=== PATIENT | female | born 1985 | race Two or more races ===

== ENCOUNTER 2018-02-17 18:27 | Emergency (ER) | payer MEDICAID ==
--- NOTE | 2018-02-17 18:48 | EDPHY ---
H & P Stated Complaint: HYPERVENTILATION/PANIC ATTACK Time Seen by Provider: 02/17/18 18:48 - Personal History LMP (Females 10-55): 22-28 Days Ago Current Tetanus/Diphtheria Vaccine: Yes - Medical/Surgical History Hx Asthma: No Hx Chronic Respiratory Disease: No Hx Diabetes: No Hx Cardiac Disease: No Hx Renal Disease: No Hx Cirrhosis: No Hx Alcoholism: No Hx HIV/AIDS: No Hx Splenectomy or Spleen Trauma: No Other PMH: tubal ligation/ANXIETY - Social History Smoking Status: Never smoked Constitutional: Initial Vital Signs Temperature (C) 37 C 02/17/18 18:43 Heart Rate 124 H 02/17/18 18:43 Respiratory Rate 32 H 02/17/18 18:43 Blood Pressure 170/125 H 02/17/18 18:43 O2 Sat (%) 99 02/17/18 18:43 O2 Delivery Mode Room Air Allergies/Adverse Reactions: No Known Allergies Allergy (Verified 02/17/18 18:41) Home Medications: Medication Instructions Recorded NK [No Known Home Meds] 02/17/18 Medical Decision Making ED Course/Re-evaluation: CHIEF COMPLAINT: Panic attack HISTORY OF PRESENT ILLNESS: This patient is a Lao-speaking 32 year old female presenting with an anxiety attack. This was reportedly triggerd this afternoon by some behavior by her teenaged son. She has had similar episodes in the past and has presented to this emergency department for evaluation. She is unable to provide further details at this time. HPI obtained primarily through deli associate at bedside. REVIEW OF SYSTEMS: A 10 point review of systems was performed and is negative with the exception of the elements mentioned in the history of present illness. PHYSICAL EXAM: HR, BP, O2 Sat, RR. Temp noted General Appearance: Appears anxious. Alert, well hydrated, and non-toxic appearing. Head: Atraumatic without scalp tenderness or obvious injury Eyes: Pupils equal, round, reactive to light and accommodation, EOMI, no trauma , no injection. Ears: Clear bilaterally, no perforation, normal landmarks Nose: Atraumatic, no rhinorrhea, clear. Throat: There is no erythema or exudates, no lesions, normal tonsils, mucus membranes moist. Neck: Supple, 2+ carotid upstroke, nontender, no lymphadenopathy. Respiratory: No retractions, no distress, no wheezes, and no accessory muscle use. Lungs are clear to auscultation bilaterally. Cardiovascular: Regular rate and rhythm, no murmurs, rubs, or gallops. Bilateral carotid, radial, dorsalis pedis, and posterior tibial pulses intact. Good capillary refill all extremities. Gastrointestinal: Abdomen is soft, nontender, non-distended, no masses, no rebound, no guarding, no peritoneal signs. Musculoskeletal: Normal active ROM of all extremities, atraumatic. Neurological: Alert, appropriate, and interactive. The patient has normal DTRs and non-focal cranial nerves, motor, sensory, and cerebellar exam. Skin: No rashes, good turgor, no nodules on palpation. Past medical history: Anxiety. Past surgical history: Noncontributory. Family history: Noncontributory. Social history: Lao -speaking. Friend at bedside. . Employed. DIFFERENTIAL DIAGNOSIS: Includes but not limited to anxiety. MEDICAL DECISION [id number] y/o female presents with anxiety. Plan to administer 2mg sublingual Ativan for symptom relief. Reassessed patient. She is feeling better following Ativan administration. Plan to discharge home in good condition. [facility] provided. She is comfortable with this plan. - Data Points Medications Given: Discontinued Medications Lorazepam (Ativan Injection) 2 mg IVP EDNOW ONE Stop: 02/17/18 18:53 Last Admin: 02/17/18 18:55 Dose: 2 mg Lorazepam (Ativan 1 Mg Prepack#4) 1 btl TAKEHOME EDNOW ONE Stop: 02/17/18 19:04 Last Admin: 02/17/18 19:25 Dose: 1 btl Departure - Departure Disposition: Home, Routine, Self-Care Clinical Impression: Anxiety Condition: Good Instructions: Anxiety (ED), Panic Attack (ED) Additional Instructions: 1. Take Ativan as prescribed as needed for anxiety. 2. [facility] with [facility]; they may be able to help with techniques to reduce anxiety. 3. Return to the emergency department for chest pain, shortness of breath, fever , or other worsening of condition. Referrals: [facility],. [Clinic] - As per Instructions Report Scribed for: Hao Wise Report Scribed by: Germania Nair Date of Report: 02/17/18 Time of Report: 19:19
[2018-02-17] MEDS ORDERED: LORazepam 2 MG/ML INJ IVP ONE (18:52)
[2018-02-17] MEDS ORDERED: LORAZEPAM 1 MG PREPACK#4 BTL TAKEHOME ONE (19:03)
[2018-02-17 19:32] VITALS: BP 161/109
== END 2018-02-17 19:30 | disposition home or self-care (01) ==
DX: F41.9 Anxiety disorder, unspecified (principal)
CPT/HCPCS: 96374; J2060

== ENCOUNTER 2018-05-02 19:23 | Emergency (ER) | payer MEDICAID ==
[2018-05-02 19:28] VITALS: BP 162/89
--- NOTE | 2018-05-02 19:35 | EDPHY ---
H & P Stated Complaint: Bilateral LE Pain - "Standing too much at new job" Time Seen by Provider: 05/02/18 19:34 HPI/ROS: CHIEF COMPLAINT: Bilateral knee pain HISTORY OF PRESENT ILLNESS: The patient presents the ED with atraumatic bilateral knee pain. The patient reports that she works at a job that requires her to be standing frequently. She has been having some discomfort along the medial aspects of her knee bilaterally. She denies any calf pain or swelling. The patient denies any focal numbness or weakness. She denies history of fall or trauma. She has been sporadically using compression stockings at home and also using ibuprofen with minimal improvement of her symptoms. The patient denies any fever. She denies prior history of surgery. She denies additional acute complaints. REVIEW OF SYSTEMS: A comprehensive 10 point review of systems is otherwise negative aside from elements mentioned in the history of present illness. Source: Patient Exam Limitations: No limitations - Personal History LMP (Females 10-55): 8-14 Days Ago Current Tetanus Diphtheria and Acellular Pertussis (TDAP): Yes - Medical/Surgical History Hx Asthma: No Hx Chronic Respiratory Disease: No Hx Diabetes: No Hx Cardiac Disease: No Hx Renal Disease: No Hx Cirrhosis: No Hx Alcoholism: No Hx HIV/AIDS: No Hx Splenectomy or Spleen Trauma: No Other PMH: tubal ligation/ANXIETY - Social History Smoking Status: Never smoked - Physical Exam Exam: General Appearance: Alert, no distress Eyes: Pupils equal and round no pallor or injection ENT, Mouth: Mucous membranes moist Respiratory: There are no retractions, lungs are clear to auscultation Cardiovascular: Regular rate and rhythm Gastrointestinal: Abdomen is soft and nontender, no masses, bowel sounds normal Neurological: 5/5 strength bilateral lower extremities Skin: Warm and dry, no rashes Musculoskeletal: Neck is supple nontender Extremities: Tenderness to palpation along the medial aspects of the knee bilaterally, no significant joint effusion Constitutional: Initial Vital Signs Temperature (C) 36.9 C 05/02/18 19:25 Heart Rate 83 05/02/18 19:25 Respiratory Rate 18 05/02/18 19:25 Blood Pressure 162/89 H 05/02/18 19:25 O2 Sat (%) 97 05/02/18 19:25 O2 Delivery Mode Room Air Allergies/Adverse Reactions: No Known Allergies Allergy (Verified 02/17/18 18:41) Home Medications: Medication Instructions Recorded Diclofenac Sodium [Voltaren 75 MG 75 mg PO BID PRN #30 tab 05/02/18 (*)] Medical Decision Making ED Course/Re-evaluation: The patient presents the ED with atraumatic knee pain which is likely consistent with a knee strain. She has no clinical evidence of a DVT. I have encouraged the patient to continue to use compression stockings. She will be given a prescription for diclofenac. She is advised to follow [facility] for any ongoing symptoms. She should return to the ED for fever, asymmetric calf pain or swelling, worsening symptoms or other concerns. Departure - Departure Disposition: Home, Routine, Self-Care Clinical Impression: Strain of knee, bilateral Condition: Good Instructions: Knee Pain (ED) Additional Instructions: 1. Wear compression stockings at all times when working. 2. Take diclofenac instead of Motrin for management of your pain. 3. Follow up with your primary care provider for any unimproved symptoms. 4. Return to the ED for markedly worsening symptoms, fever, chest pain, shortness of breath or other concerns. Referrals: [facility],. [Clinic] - As per Instructions
== END 2018-05-02 20:10 | disposition home or self-care (01) ==
DX: S86.911A Strain of unspecified muscle(s) and tendon(s) at lower leg level, right leg, initial encounter (principal); S86.912A Strain of unspecified muscle(s) and tendon(s) at lower leg level, left leg, initial encounter; X58.XXXA Exposure to other specified factors, initial encounter; Y99.8 Other external cause status

== ENCOUNTER 2018-09-08 16:22 | Emergency (ER) | payer MEDICAID ==
--- NOTE | 2018-09-08 17:14 | EDPHY ---
H & P Time Seen by Provider: 09/08/18 16:58 HPI/ROS: Chief complaint. Fell down stairs HPI. 33-year-old female fell down stairs yesterday. Misstep and slipped and fell down 5 stairs. She complains of left rib pain, tailbone pain, right toe pain. She did not strike her head or lose consciousness. She has otherwise no neck or spine pain. No chest pain or abdominal pain. ROS 10 systems were reviewed and negative with the exception of the elements mentioned in the history of present illness Past Medical/Surgical History: Tubal ligation, anxiety Social History: , nonsmoker, no alcohol Smoking Status: Never smoked Physical Exam: General Appearance: Alert well-developed female mild distress vital signs are stable Eyes: Pupils equal and round no pallor or injection. ENT, no hemotympanum or Fontaine sign. No oral pharyngeal or dental trauma. No bumps to the head Respiratory: There are no retractions, lungs are clear to auscultation. Cardiovascular: Regular rate and rhythm. Gastrointestinal: Abdomen is soft and nontender, no masses, bowel sounds normal. Neurological: Awake and alert, sensory and motor exams grossly normal. Skin: Warm and dry, no rashes. Musculoskeletal: Neck is supple nontender. C, T, L spine is nontender. She is tender over the sacrum and coccyx. Chest is tender left mid axillary line at T7, T8 Extremities symmetrical, full range of motion. Right great toe pain and mild swelling Psychiatric: Patient is oriented X 3, there is no agitation. Constitutional: Initial Vital Signs Temperature (C) 36.9 C 09/08/18 16:32 Heart Rate 87 09/08/18 16:32 Respiratory Rate 16 09/08/18 16:32 Blood Pressure 158/88 H 09/08/18 16:32 O2 Sat (%) 98 09/08/18 16:32 O2 Delivery Mode Room Air Allergies/Adverse Reactions: No Known Allergies Allergy (Verified 02/17/18 18:41) Home Medications: Medication Instructions Recorded Hydrocodone/APAP 5/325 [Law[place] 1 each PO Q4-6PRN PRN #10 tab 09/08/18 5/325 (*)] Medical Decision Making - Diagnostics Imaging Results: Chest x-ray interpreted by me shows no obvious rib fracture pneumothorax X-ray coccyx shows no obvious fracture X-ray right great toe shows small fracture at the base of the proximal phalanx Procedures: Postop shoe. Post splint application shows good anatomic position and distal motor vascular sensitivity to be intact ED Course/Re-evaluation: Re-evaluation 6:25 p.m.. Patient and I discussed imaging study results, treatment plan including criteria for return importance of follow-up and further evaluation. She expresses understanding and agreement Differential Diagnosis: I considered fracture, dislocation, pneumothorax Departure - Departure Disposition: Home, Routine, Self-Care Clinical Impression: Contusion Qualifiers: Encounter type: initial encounter Contusion area: thoracic wall Contusion of thoracic wall detail: back wall of thorax Toe fracture, right Qualifiers: Encounter type: initial encounter Toe: great toe Salter-Kyle Fracture Type: unspecified configuration Condition: Good Instructions: Toe Fracture (ED) Additional Instructions: Ice to sore areas next 24 hr Ibuprofen 600 mg every 6 hr for discomfort. Hydrocodone in addition as needed for discomfort Return for worsening symptoms. Re-evaluation in 3-4 days Referrals: NONE *PRIMARY CARE P,. [Primary Care Provider] - As per Instructions [facility] [Outside] - 3-4 days, if not improved Stand Alone Forms: Work Excuse Prescriptions: Hydrocodone/APAP 5/325 [Lawrence 5/325 (*)] 1 each PO Q4-6PRN PRN #10 tab PRN Reason: Pain, Moderate
[2018-09-08 18:27] VITALS: BP 153/90
== END 2018-09-08 19:07 | disposition home or self-care (01) ==
DX: S92.411A Displaced fracture of proximal phalanx of right great toe, initial encounter for closed fracture (principal); R07.81 Pleurodynia; M53.3 Sacrococcygeal disorders, not elsewhere classified; W10.8XXA Fall (on) (from) other stairs and steps, initial encounter
CPT/HCPCS: L4386